=== PATIENT | male | born 1960 | race Caucasian/White ===

== ENCOUNTER → 2020-10-07 | Outpatient (CLI) | payer BC ==
[~2020-10-07] MED LIST: CYCL10TA9 PO; HYDR-622 PO; HYDR-757 PO
== END ==
LOC: LABNPT 05:46
PROVIDERS: ATTEND Internal Medicine
DX: J02.9 Acute pharyngitis, unspecified (principal); R05 Cough; R53.83 Other fatigue; Z20.822 Contact with and (suspected) exposure to COVID-19
CPT/HCPCS: 87635